=== PATIENT | female | born 1975 | race Caucasian/White ===

== ENCOUNTER 2017-06-20 19:21 | Emergency (ER) | payer SELFPAY ==
[2017-06-20 19:36] VITALS: BP 133/86; PULSE 95; RESP 16; TEMP 98.2; O2SAT 97
--- NOTE | 2017-06-20 19:44 | EDPHY ---
H & P Time Seen by Provider: 06/20/17 19:34 HPI/ROS: This patient complains of itching to bilateral hands and forearms increasing over the past week or so associated with red bumps. She thinks this is related to glove she wears a work in a [employer] located within the [facility]. She explains that the gloves go up to the elbows. She is uncertain if they are latex or other material. He has never had this problem before. She states the itching is moderate to severe at times. Her impression is that her rash has worsened over the past couple days. She tried Aveeno without improvement and notes no other exacerbating or alleviating factors. ROS: No fevers no other constitutional symptoms Integumentary: No skin rash elsewhere on her body Pulmonary: No wheezing or shortness of breath Cardiovascular: No lightheadedness GI: No nausea vomiting 5 point ROS is otherwise negative. Smoking Status: Never smoked Physical Exam: Physical Exam Vital signs are normal. General: No acute distress HEENT: No angioedema Eyes: Pupils equal and react to light. Extraocular motions are intact. No conjunctival injection Lungs: No respiratory distress. Cardiac: Brisk capillary refill is intact throughout. Pulses are 2+ and symmetric in the affected extremity. Skin: Patient has erythema that is confluent to the right thumb with dried and cracking skin no warmth to touch blanches easily with pressure she has discrete erythematous papules on dorsum of hands and forearm that julieth easily with pressure. No petechia or purpura. Neuro: Alert and oriented x3 with no sensorimotor deficits. Initial differential diagnosis: Contact dermatitis, doubt herpetic susanne, doubt cellulitis, psoriasis Constitutional: Initial Vital Signs Temperature (C) 36.8 C 06/20/17 19:32 Heart Rate 95 06/20/17 19:32 Respiratory Rate 16 06/20/17 19:32 Blood Pressure 133/86 H 06/20/17 19:32 O2 Sat (%) 97 06/20/17 19:32 O2 Delivery Mode Room Air Allergies/Adverse Reactions: No Known Allergies Allergy (Unverified 06/20/17 19:32) Home Medications: Medication Instructions Recorded HYDROCORTISONE VALERATE [WESTCORT] 1 evelio TP BID #15 cream.gm. 06/20/17 MDM/Departure - MDM ED Course/Re-evaluation: Discussion: I suspect this is contact dermatitis related to the glove she is wearing at work. I counseled regarding this. Full start her Westcort cream and antihistamines with plan to follow up with work comp clinic and plan to avoid washing dishes so she does not after the gloves for the next week. - Depart Disposition: Home, Routine, Self-Care Clinical Impression: Contact dermatitis Qualifiers: Contact dermatitis type: allergic Contact dermatitis trigger: other trigger Qualified Code(s): L23.89 - Allergic contact dermatitis due to other agents Condition: Good Instructions: Hydrocortisone (On the skin), Contact Dermatitis (ED) Additional Instructions: Diagnosis: Contact dermatitis Plan: Westcort steroid cream twice a day If your using latex gloves at work, switch to non latex gloves No dishes until he follow up with work comp clinic Arrange for a work comp clinic follow-up for early next week. Stand Alone Forms: Work Limited Duty Prescriptions: HYDROCORTISONE VALERATE [WESTCORT] 1 evelio TP BID #15 cream.gm.
== END 2017-06-20 19:59 | disposition home or self-care (01) ==
LOC: CED 19:21
DX: L23.89 Allergic contact dermatitis due to other agents (principal)